=== PATIENT | male | born 1965 | race Caucasian/White ===

== ENCOUNTER 2020-03-29 13:21 | Emergency (ER) | payer OTHER ==
[2020-03-29 16:10] LABS: HEMOGLOBIN 13.2 gm/dl (14.0-17.5); RED BLOOD COUNT 4.17 M/UL (4.20-5.50); WHITE BLOOD COUNT 16.6 K/UL (4.5-11.0)
[2020-03-29 16:37] LABS: BUN/CREATININE RATIO 15 (0-10)
[2020-03-29] MEDS ORDERED: IBUPROFEN800 MG PO (20:48)
[2020-03-29] MEDS ORDERED: HYDROCODON-ACE1 EAC4 PO (20:48)
[2020-03-29] MEDS ORDERED: VIBRAMYCIN100 MG PO (20:48)
== END 2020-03-29 21:14 | disposition home or self-care (01) ==
LOC: ER1 13:21
PROVIDERS: Family Medicine
DX: N49.2 Inflammatory disorders of scrotum (principal)
CPT/HCPCS: 36415; 76870; 80048; 81001; 85025; 86140; 99284; Q9967